=== PATIENT | female | born 1975 | race Caucasian/White ===

== ENCOUNTER 2018-06-28 17:44 | Emergency (ER) | payer SELFPAY ==
[~2018-06-28] VITALS: Ht 165.1 cm; Wt 63.6 kg
[2018-06-28] MEDS ORDERED: ZIPRASIDONE 20 MG INJ IM ONE ×3 (17:47→23:17)
[2018-06-28 18:18] LABS: BASOPHILS # (AUTO) 0.02 x10^3/uL (0-0.1); BASOPHILS % (AUTO) 0 % (0-1); EOSINOPHILS # (AUTO) 0.09 x10^3/uL (0-0.4); EOSINOPHILS % (AUTO) 2 % (1-7); LYMPHOCYTES % (AUTO) 36 % (22-44); MD NO; MEAN CORPUSCULAR HEMOGLOBIN 29.4 pg (27.0-34.8); MEAN CORPUSCULAR HGB CONC 33.4 g/dL (32.4-35.8); MEAN CORPUSCULAR VOLUME 88.2 fL (80-100); MEAN PLATELET VOLUME 11.4 fL (7.4-10.4); MONOCYTES # (AUTO) 0.66 x10^3/uL (0.2-0.8); MONOCYTES % (AUTO) 11 % (2-9); NEUTROPHILS # (AUTO) 3.21 x10^3/uL (1.8-6.8); NEUTROPHILS % (AUTO) 52 % (42-75); PLATELET COUNT 162 x10^3/uL (130-400); RED BLOOD COUNT 4.18 x10^6/uL (3.82-5.3); RED CELL DISTRIBUTION WIDTH 14.1 % (9.6-15.2)
[2018-06-28 18:21] VITALS: BP 126/64
[2018-06-28 18:29] LABS: ALBUMIN 3.6 g/dL (3.4-5.0); ANION GAP 8 mmol/L (5-15); CALCIUM 8.4 mg/dL (8.5-10.1); CHLORIDE 107 mmol/L (98-107); CREATININE 0.83 mg/dL (0.55-1.02)
[2018-06-28] MEDS ORDERED: PLEASE ENTER ALLERGIES MC SCH (18:30)
[2018-06-28] MEDS ORDERED: PLEASE ENTER HEIGHT AND WEIGHT MC SCH (18:30)
[2018-06-28 18:33] LABS: SALICYLATE LEVEL 1.7 mg/dL (2.8-20.0)
[2018-06-28 18:37] LABS: ACETAMINOPHEN < 2 mcg/mL (10-30)
[2018-06-28 18:51] LABS: AMPHETAMINE SCREEN, URINE Positive (Negative); BARBITURATE SCREEN, URINE Negative (Negative); BENZODIAZEPINE SCREEN, URINE Negative (Negative); CANNABINOID SCREEN, URINE Negative (Negative); COCAINE SCREEN, URINE Negative (Negative); METHADONE SCREEN, URINE Negative (Negative); OPIATE SCREEN, URINE Negative (Negative)
--- NOTE | 2018-06-28 18:51 | NUR ---
pt sleeping in gurney, arouses to verbal stimuli. sitter monitoring from [facility] for safety
--- NOTE | 2018-06-28 20:06 | NUR ---
TP RN: PT MOSTLY DROWSY D/T MEDICATIONS. UNABLE TO OBTAIN INSURANCE INFORMATION AT THIS TIME TO INITIATE PSYCH CONSULT.
--- NOTE | 2018-06-28 20:24 | NUR ---
PT SLEEPING ON GURFOXBORO AT THIS TIME. ROOM SECURED AND SITTER AT DOORWAY.
--- NOTE | 2018-06-28 21:05 | NUR ---
PT PROVIDED WITH FOOD AND WATER AND ADDITIONAL WARM BLANKETS. NO ADDITIONAL NEEDS EXPRESSED AT THIS TIME.
--- NOTE | 2018-06-28 21:29 | NUR ---
TP RN: TELEPSYCH CONSULT INITIATED.
--- NOTE | 2018-06-28 21:30 | NUR ---
RN ASKING PT QUESTIONS, IF PT HAS INSURANCE. PT YELLING AND THROWING CHIPS AT RN AT THIS TIME. CELL PHONE TAKEN FROM PT WELL.
--- NOTE | 2018-06-28 22:39 | NUR ---
PT ESCALATING AND VERBALLY THREATENING RN AND SITTER AT THIS TIME. PT INSTRUCTED TO REST ON GURNEY.
--- NOTE | 2018-06-28 23:15 | NUR ---
PT ESCALATING IN HALLWAY, YELLING AND LUNGING TOWARDS RN. PT DEMANDING FOOD AND TO SPEAK WITH THE MD. PT INSTRUCTED TO GO BACK TO ROOM SEVERAL TIMES. SECURITY CALLED AT THIS TIME.
--- NOTE | 2018-06-28 23:32 | NUR ---
SECURITY AT BEDSIDE TO ASSIST WITH PT. PT ASKED IF SHE WILL BEHAVE AND STAY IN ROOM AND NOT SCREAM AT STAFF ANY LONGER. PT AGREES WITH PLAN OF CARE AND STATES SHE WILL COOPERATE TO AVOID BEING RESTRAINED. PT MEDICATED AT THIS TIME FOR AGGITATION. SITTER AT DOORWAY AND WILL CONT TO MONITOR.
--- NOTE | 2018-06-29 01:26 | NUR ---
PT SLEEPING ON GUR[place]OENIX, SITTER AT DOORWAY. WILL CONT TO MONITOR.
--- NOTE | 2018-06-29 02:35 | NUR ---
LUNCH RN: BS REPORT OF PT FROM LOYDA GUILLEN. ALL QUESTIONS ANSWERED. ASSUMING CARE OF PT AT THIS TIME. PT IS ASLEEP IN [facility] AT THIS TIME WITH SITTER OUTSIDE OF BEDROOM FOR DIRECT OBSERVATION. SITTER GIVEN JUICE FOR PT PER PT REQUEST.
== END 2018-06-29 04:21 | disposition home or self-care (01) ==
LOC: ED 20:40
DX: F23 Brief psychotic disorder (principal)
CPT/HCPCS: 36415; 80048; 80307; 80329; 82040; 84703; 85025; 96372; 99284; J3486; G0480

== ENCOUNTER 2019-08-10 14:04 | Emergency (ER) | payer OTHER, MEDICAID ==
[~2019-08-10] VITALS: Ht 170.2 cm; Wt 85.0 kg
[2019-08-10 14:08] VITALS: BP 182/105
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
[2019-08-10] MEDS ORDERED: ZIPRASIDONE 20 MG INJ IM ONE ×2 (14:19→14:30)
[2019-08-10] MEDS ORDERED: LORazepam 2 MG/ML, 1ML ONE (14:19)
--- NOTE | 2019-08-10 14:28 | NUR ---
PT MEDICATED PER EMAR. PT TOLERATED WELL.
[2019-08-10] MEDS ORDERED: PLEASE ENTER HEIGHT AND WEIGHT MC SCH (14:30)
[2019-08-10] MEDS ORDERED: LORazepam 2 MG/ML, 1ML IM ONE (14:30)
== END 2019-08-10 15:07 | disposition home or self-care (01) ==
LOC: ED 14:14
DX: F44.9 Dissociative and conversion disorder, unspecified (principal); F15.10 Other stimulant abuse, uncomplicated
CPT/HCPCS: 36415; 86704; 86705; 86706; 86803; 87340; 87806; 96372; 99284; J2060; J3486; G0475

== ENCOUNTER 2019-09-10 18:06 | Emergency (ER) | payer MEDICAID, OTHER ==
[~2019-09-10] VITALS: Ht 172.7 cm; Wt 75.0 kg
[2019-09-10] MEDS ORDERED: ZIPRASIDONE 20 MG INJ IM ONE ×3 (18:18→22:31)
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
--- NOTE | 2019-09-10 18:34 | NUR ---
PT IN RESTRAINTS. MEDICATED PER ORDERS
[2019-09-10 18:47] LABS: BASOPHILS # (AUTO) 0.02 x10^3/uL (0-0.1); BASOPHILS % (AUTO) 0 % (0-1); EOSINOPHILS # (AUTO) 0.07 x10^3/uL (0-0.4); EOSINOPHILS % (AUTO) 1 % (1-7); LYMPHOCYTES # (AUTO) 1.13 x10^3/uL (1-3.4); LYMPHOCYTES % (AUTO) 16 % (22-44); MD NO; MEAN CORPUSCULAR HEMOGLOBIN 29.5 pg (27.0-34.8); MEAN CORPUSCULAR HGB CONC 32.7 g/dL (32.4-35.8); MEAN PLATELET VOLUME 10.1 fL (7.4-10.4); MONOCYTES # (AUTO) 0.76 x10^3/uL (0.2-0.8); MONOCYTES % (AUTO) 11 % (2-9); NEUTROPHILS # (AUTO) 5.03 x10^3/uL (1.8-6.8); NEUTROPHILS % (AUTO) 72 % (42-75); PLATELET COUNT 174 x10^3/uL (130-400); RED BLOOD COUNT 4.02 x10^6/uL (3.82-5.3); RED CELL DISTRIBUTION WIDTH 15.2 % (9.6-15.2)
[2019-09-10 18:56] LABS: ALBUMIN 3.4 g/dL (3.4-5.0); ANION GAP 10 mmol/L (5-15); CALCIUM 9.2 mg/dL (8.5-10.1); CHLORIDE 107 mmol/L (98-107); CREATININE 0.81 mg/dL (0.55-1.02); SALICYLATE LEVEL 2.1 mg/dL (2.8-20.0)
[2019-09-10] MEDS: ZIPRASIDONE 20 MG INJ IM ONE (19:00)
--- NOTE | 2019-09-10 19:16 | NUR ---
Torsten limon in ED - 09/10/19 at 1917 by NANCY PT RESTING ON GURNEY WITH EYES CLOSED, NADN, EQUAL CHEST RISE/FALL OBSERVED, RESTRAINTS IN PLACE, SKIN ASSESSED
--- NOTE | 2019-09-10 19:17 | NUR ---
PT RESTING ON GURNEY WITH EYES CLOSED, NADN, EQUAL CHEST RISE/FALL OBSERVED, RESTRAINTS IN PLACE, SKIN ASSESSED
--- NOTE | 2019-09-10 19:49 | NUR ---
pt resting on gurney, vs taken, pt arouses easily, aggitated and requesting water, room secured, pt's personal belongings locked in security locker ( 1 bag). provided pt with water
--- NOTE | 2019-09-10 20:26 | NUR ---
PT RESTING ON GURNEY WITH EYES CLOSED, OPENS EYES EASILY, PROVIDED PT WITH WATER. PT STATES SHE DOES NOT KNOW WHY SHE IS HERE AND WANTS HER RESTRAINTS REMOVED, PT ALSO STATED " I WANT MY FUNKY CHICKENS IN HERE"
[2019-09-10] MEDS ORDERED: LORazepam 1MG TABLET ONE (20:32)
--- NOTE | 2019-09-10 20:34 | NUR ---
PT MEDICATED PER ERP VERBAL ORDER PO ATIVAN Addendum: 09/10/19 at 2121 by DANNIE MONITORS IN PLACE, WILL CONTINUE TO MONITOR
[2019-09-10] MEDS ORDERED: LORazepam 1MG TABLET PO ONE (21:00)
--- NOTE | 2019-09-10 22:21 | NUR ---
PT RESTING CALMLY, NAD, EQUAL CHEST RISE/FALL OBSERVED. SECURITY CALLED FOR RESTRAINT REMOVAL
--- NOTE | 2019-09-10 22:32 | NUR ---
PT ATTEMPTED TO PULL OFF RESTRAINTS AND TO GET OOB, PT ALERT BUT CONFUSED, RESPIRATIONS EVEN AND UNLABORED, MONITORS IN PLACE. ERP UPDATED, ORDER RECEIVED.
--- NOTE | 2019-09-10 22:41 | NUR ---
PT MEDICATED PER MAR
--- NOTE | 2019-09-10 23:32 | NUR ---
pt resting calmly with eyes closed, nadn, equal chest rise/fall observed. sitter at doorway for continous monitoring
--- NOTE | 2019-09-11 01:21 | NUR ---
PT RESTING ON GURNEY WITH EYES CLOSED, MONITORS IN PLACE, SITTER AT DOORWAY FOR CONTINOUS MONITORING. ORDER PLACED FOR HOSPITAL BED
--- NOTE | 2019-09-11 02:09 | NUR ---
PT RESTING ON GURNEY WITH EYES CLOSED, EQUAL CHEST RISE/FALL OBSERVED, SITTER AT DOORWAY FOR CONTINOUS MONITORING.
--- NOTE | 2019-09-11 03:25 | NUR ---
PT RESTING ON GURNEY WITH EYES CLOSED ROCKING BACK AND FORTH, PROVIDED PT WITH XTRA BLANKET, RESPIRATIONS EVEN AND UNLABORED, SITTER AT DOORWAY FOR CONTINOUS MONITORING.
--- NOTE | 2019-09-11 04:20 | NUR ---
PT RESTING ON GURNEY WITH EYES CLOSED, EQUAL CHEST RISE/FALL OBSERVED, SITTER AT DOORWAY FOR CONTINOUS MONITORING.
--- NOTE | 2019-09-11 05:04 | NUR ---
geeta remains at doorway for coninous monitoring
--- NOTE | 2019-09-11 05:04 | NUR ---
pt up standing in room without clothing on yelling out, requesting food. security called, pt up to rr gor urine sample, pt medicated per erp order, provided pt with meal and gown
[2019-09-11] MEDS ORDERED: LORazepam 1MG TABLET ONE (05:05)
[2019-09-11] MEDS ORDERED: ZIPRASIDONE 20MG CAPSULE ONE (05:05)
--- NOTE | 2019-09-11 05:07 | NUR ---
provided pt with hospital bed
[2019-09-11] MEDS ORDERED: LORazepam 1MG TABLET PO ONE (05:30)
[2019-09-11] MEDS ORDERED: ZIPRASIDONE 20MG CAPSULE PO SCH (05:30)
[2019-09-11 05:42] LABS: AMPHETAMINE SCREEN, URINE Positive (Negative); BARBITURATE SCREEN, URINE Negative (Negative); BENZODIAZEPINE SCREEN, URINE Negative (Negative); CANNABINOID SCREEN, URINE Negative (Negative); COCAINE SCREEN, URINE Negative (Negative); METHADONE SCREEN, URINE Negative (Negative); OPIATE SCREEN, URINE Negative (Negative)
--- NOTE | 2019-09-11 06:08 | NUR ---
pt resting in bed with eyes closed, equal chest rise/fall observed, sitter at doorway for continous monitoring
--- NOTE | 2019-09-11 06:10 | NUR ---
Drug screen urinalysis back at this time and asked [facility] to look over patients chart and get back to us regarding whether they would like to accept patient.
--- NOTE | 2019-09-11 06:44 | NUR ---
2N still doing shift report but state they are aware of patient and will look over chart after shift report.
--- NOTE | 2019-09-11 07:00 | NUR ---
REPORT GIVEN TO LOYDA GEORGE
--- NOTE | 2019-09-11 07:03 | NUR ---
REPORT FROM LOYDA COLE. ASSUMING PRIMARY CARE OF PT.
--- NOTE | 2019-09-11 07:12 | NUR ---
PT ASLEEP. RR EVEN AND UNLABORED. SITTER OUTSIDE OF ROOM MONITORING PT. SI PRECAUTIONS IMPLEMENTED. BREAKFAST ORDERED.
--- NOTE | 2019-09-11 10:47 | NUR ---
PT ASLEEP ON HOSPITAL BED. RR EVEN AND UNLABORED. SI PRECAUTIONS IMPLEMENTED. SITTER OUTSIDE OF ROOM MONITORING PT.
--- NOTE | 2019-09-11 11:28 | NUR ---
RN ORDERED PT LUNCH TRAY. PT STILL ASLEEP ON HOSPITAL BED. RR EVEN AND UNLABORED.
--- NOTE | 2019-09-11 11:48 | NUR ---
REPORT TO BREAK RN.
--- NOTE | 2019-09-11 12:16 | NUR ---
BREAK RN. LUNCH PROVIDED.
--- NOTE | 2019-09-11 12:31 | NUR ---
PT AWAKE EATING LUNCH. ASKED RN IF SHE IS GOING "TO BE RELEASED TODAY." RN INFORMED PATIENT THAT SHE WILL LOOK AT CHART AND UPDATE HER. PT DENIES SI/HI AT THIS TIME. NO C/O PAIN OR DISCOMFORT.
[2019-09-11 13:18] VITALS: BP 119/72
--- NOTE | 2019-09-11 13:18 | NUR ---
PT DISCHARGED HOME IN A STABLE CONDITION. DC INSTRUCTIONS WERE DISCUSSED WITH PT. PT VERBALIZED UNDERSTANDING. NO FURTHER QUESTIONS OR CONCERNS WERE EXPRESSED AT THAT TIME. PT AMBULATED OUT OF ED WITH A STEADY GAIT.
== END 2019-09-11 13:20 | disposition home or self-care (01) ==
LOC: ED 20:16
DX: F19.950 Other psychoactive substance use, unspecified with psychoactive substance-induced psychotic disorder with delusions (principal); F22 Delusional disorders
CPT/HCPCS: 36415; 80048; 80307; 82040; 84703; 85025; 96372; 99284; J3486